=== PATIENT | female | born 1995 | race Caucasian/White ===

== ENCOUNTER 2017-05-10 21:27 | Emergency (ER) | payer BC ==
[~2017-05-10] VITALS: Ht 162.6 cm; Wt 52.8 kg
[2017-05-10 21:33] VITALS: Ht 162.6 cm; Wt 52.8 kg
[2017-05-10] MEDS ORDERED: RANITIDINE HCL 150 MG TAB PO STA (21:39)
[2017-05-10] MEDS ORDERED: DEXAMETHASONE SOD INJ 10 MG/ML VIAL PO ONE (21:45)
[2017-05-10] MEDS ORDERED: EPP3/2 IM (21:57)
[2017-05-10] MEDS ORDERED: PRED50TA PO (21:57)
--- NOTE | 2017-05-10 22:08 | EMERGENCY ROOM VISIT NOTE ---
History First contact with patient: 21:36 Chief Complaint: ALLERGIC REACTION Stated Complaint: HIVES,SWELLING,BRUISING History of Present Illness The patient is a 22 year old female who presents to the Emergency Room with complaints of rash and itching after taking amoxicillin for the past 4 days for sinus infection. Patient states the rash started yesterday. She tried an allergy pill no improvement of symptoms. Patient denies chest pain, throat tightness, facial swelling, abdominal pain, vomiting, diarrhea. No other new foods soaps or detergents. Review of Systems See HPI for pertinent positives & negatives. A total of 10 systems reviewed and were otherwise negative. Past Medical/Surgical History none Social History Smoking Status: Never Smoker Smokeless Tobacco Use: No Drug Use: none Occupation Status: [employer] student Current/Historical Medications Scheduled Epinephrine (Epipen 2-Yovanny), 1 PKT IM DIRECTED Prednisone (Prednisone), 50 MG PO DAILY Physical Exam Vital Signs Date Time Temp Pulse Resp B/P (MAP) Pulse Ox O2 Delivery O2 Flow Rate FiO2 05/10/17 21:33 36.7 85 17 124/82 95 Room Air Physical Exam VITALS: Vitals are noted on the nurse's note and reviewed by myself. Vital signs stable. GENERAL: Pleasant female, in no acute distress, nondiaphoretic, well-developed well-nourished. SKIN: Diffuse erythematous raised blanchable dermatitis most consistent with allergic reaction The rest of the skin was without rashes, erythema, edema, or bruising. There is no tenting of the skin. Capillary reflex less than 2 seconds. HEAD: Normocephalic atraumatic. EARS: External auditory canals clear, tympanic membranes pearly powers without erythema or effusion bilaterally. EYES: Pupils equal round and reactive to light and accommodation. Conjunctivae without injection, sclerae without icterus. Extraocular movements intact. NOSE: Patent, turbinates without inflammation or discharge. No sinus tenderness. MOUTH: Mucous membranes moist. Pharynx without erythema or exudate. Uvula midline. Airway patent. Tongue does not deviate. NECK: Supple without nuchal rigidity. No lymphadenopathy. No thyromegaly. Cervical spine is nontender. No JVD. HEART: Regular rate and rhythm without murmurs gallops or rubs. LUNGS: Clear to auscultation bilaterally without wheezes, rales or rhonchi. No dullness to percussion. No retractions or accessory muscle use. ABDOMEN: Positive bowel sounds x 4. Normal tympanic percussion. Soft, nontender, without masses or organomegaly. Taylor sign negative. No guarding or rebound tenderness. MUSCULOSKELETAL: No muscle atrophy, erythema, or edema noted. NEURO: Patient was alert and oriented to person place and time. Normal sensation to light and sharp touch. No focal neurological deficits. Medical Decision & Procedures Medications Administered Medications (Trade) Dose Ordered Sig/Oriana Route Start Time Stop Time Status Last Admin Dose Admin Dexamethasone Sodium Phosphate (Decadron Inj) 10 mg NOW ONCE PO 05/10/17 21:45 05/10/17 21:46 DC 05/10/17 22:00 10 MG Ranitidine HCl (zANTac TAB) 150 mg ONE STAT PO 05/10/17 21:39 05/10/17 21:41 DC 05/10/17 21:59 150 MG Diphenhydramine HCl (Benadryl Cap) 50 mg NOW ONCE PO 05/10/17 21:45 05/10/17 21:46 DC 05/10/17 22:00 50 MG ED Course Prior records/ancillary studies reviewed. Triage Nursing notes reviewed. Additional history obtained from friend. The patient's history was concerning for possible allergic reaction. Differential diagnosis: Etiologies such as allergic reaction, anaphylaxis, urticaria, Valentino-Catalino syndrome, toxic epidermal necrolysis, erythema multiforme, cellulitis, as well as others were entertained. Physical examination: As above. ER treatment provided: Continuous cardiac monitoring Decadron 10mg po Benadryl 50 mg PO Zantac 150 mg PO On reassessment the patient felt better. Diagnostic interpretation by me: Deferred It appears the patient had an allergic reaction. Patient was advised not to take penicillins in the future until cleared by the repairer kiln car. The above treatment did well to reverse the symptoms. After prolonged monitoring and frequent reassessments the patient did very well and symptoms resolved. The patient was counseled on the spectrum of this disease process and told to avoid potential triggers. I gave my usual and customary discussion regarding this issue. By the evaluation outlined above emergent etiologies such as recurring anaphylaxis, anaphylatic shock, airway compromise, Valentino-Catalino syndrome, toxic epidermal necrolysis, erythema multiforme, infectious etiologies, as well as others were deemed relatively unlikely. The pt informed about the findings as listed above. All questions were answered and pleased with the treatment. Return instructions were outlined and the patient was discharged in stable condition. Outpatient prescription management: EpiPen prednisone Referral: The patient was referred back to primary care physician for follow-up in 2-3 days for a recheck of the current condition. or The patient was referred to Allergy/Immunology for further evaluation. Medical Decision As above Medication Reconcilliation Current Medication List: was personally reviewed by me Blood Pressure Screening Patient's blood pressure: Normal blood pressure Impression Primary Impression: Adverse reaction to drug Departure Information Dispostion Home / Self-Care Condition GOOD Prescriptions Prednisone (Prednisone) 50 Mg Tab 50 MG PO DAILY for 4 Days, #4 TAB Prov: Clarissa Bae .PETE 05/10/17 Epinephrine (EPIPEN 2-YOVANNY) 0.3 Mg Inj 1 PKT IM DIRECTED, #1 PKT Prov: Clarissa Bae .PETE 05/10/17 Referrals No Doctor, Assigned (PCP) Forms HOME CARE DOCUMENTATION FORM, IMPORTANT VISIT INFORMATION Patient Instructions My [facility], ED Drug React Allergic Additional Instructions Do not take penicillins in the future until cleared by the repairer kiln car. Manuel this as an allergy. DO NOT drive, drink alcohol, operate machinery, or perform dangerous activities today. You were given medications in the ER that can affect your ability to safely function or operate a vehicle. Epi-Pen: Use one injection as instructed for severe allergic reactions associated with shortness of breath, difficulty breathing, or throat or tongue swelling. If you use this injection call 911 or proceed immediately to the nearest Emergency Room. Prednisone 50mg: Once daily until the prescription is finished. It is best to take this earlier in the day as some patients note occasional difficulty falling asleep when taken in the late evening. Diphenhydramine(Benadryl) 25mg: use 25 to 50 mg every six hours for swelling, itching, or hives. This medication is sedating and will cause drowsiness. Avoid alcohol, operating machinery or dangerous equipment, working on ladders or roofs, DRIVING, or situations where being under the influence may be dangerous. Zantac 75: Take two pills twice a day along with Benadryl as needed for swelling , itching, or hives. Most people know this for its affect on the stomach, but it also acts similar to, but less potent than Benadryl for allergic reactions. Both the Benadryl and the Zantac are available [id number]. Continue current medications. Return to the emergency department for worsening of your rash, swelling of your face, lips, tongue, or throat, difficulty breathing, vomiting, or as needed. Follow-up with your primary care physician in 2 to 3 days for a recheck of your current condition. Problem Qualifiers Primary Impression: Adverse reaction to drug Encounter type: initial encounter Qualified Codes: T88.7XXA - Unspecified adverse effect of drug or medicament, initial encounter
[2017-05-10 22:11] VITALS: BP 121/78; PULSE 81; TEMP 36.7; O2SAT 95
== END 2017-05-10 22:12 | disposition home or self-care (01) ==
LOC: C.EDB 21:30
DX: T88.7XXA Unspecified adverse effect of drug or medicament, initial encounter (principal); X58.XXXA Exposure to other specified factors, initial encounter; T36.0X5A Adverse effect of penicillins, initial encounter

== ENCOUNTER → 2017-11-28 | Outpatient (CLI) | payer BC ==
[~2017-11-28] MED LIST: EPP3/2 IM
[2017-11-28 16:31] LABS: HEMATOCRIT 40.1 % (37-47); HEMOGLOBIN 13.9 g/dL (12.0-16.0); MEAN CELL VOLUME 85.5 fL (80-100); MEAN CORPUSCULAR HEMOGLOBIN 29.6 pg (25-34); MEAN CORPUSCULAR HGB CONC 34.7 g/dl (32-36); PLATELET COUNT 194 K/uL (130-400); RED CELL DISTRIBUTION WIDTH CV 12.9 % (11.5-14.5); RED CELL DISTRIBUTION WIDTH SD 40.4 fL (36.4-46.3); WHITE BLOOD COUNT 8.79 K/uL (4.8-10.8)
== END | disposition home or self-care (01) ==
LOC: C.LAB1850 15:10
PROVIDERS: ATTEND Physician Assistant
DX: N93.9 Abnormal uterine and vaginal bleeding, unspecified (principal)

== ENCOUNTER → 2017-12-21 | Day surgery (SDC) | payer BC ==
[2017-12-12 08:34] VITALS: Ht 162.6 cm; Wt 54.5 kg
--- NOTE | 2017-12-13 16:41 | HISTORY & PHYSICAL EXAMINATION ---
DATE OF ADMISSION: 12/21/2017 ADMITTING DIAGNOSES: 1. Dysfunctional uterine bleeding. 2. Probable endometrial polyp. ADMISSION HISTORY: The patient is a 22-year-old 0, last menstrual period of 01 December, who is admitted for diagnostic hysteroscopy, D and C, and removal of endometrial polyp. The patient was referred to our office from [facility]. She has been having irregular bleeding. Pelvic ultrasound showed what appeared to be an endometrial polyp. The patient seen in the office and had an office SIS which revealed a probable lower uterine segment endometrial polyp, treatment options were discussed, and the patient has been admitted for the above-listed procedure. PAST MEDICAL HISTORY: OBSTETRICAL: Nulligravida. GYNECOLOGICAL: PCOS. MEDICAL: None. SURGICAL: None. ALLERGIES: TO AMOXICILLIN AND PENICILLIN. SOCIAL HISTORY: No smoking. FAMILY HISTORY: Noncontributory. REVIEW OF SYSTEMS: As per HPI. ADMISSION PHYSICAL EXAMINATION: GENERAL: Shows a pleasant female, in no acute distress. VITAL SIGNS: Blood pressure 100/80, height of 5 feet 3 inches, and weight of 115 pounds. HEENT EXAMINATION: Unremarkable. NECK: Supple. LUNGS: Clear. HEART: With a regular rhythm and rate. ABDOMEN: Soft, nontender. PELVIC EXAMINATION: Shows normal external genitalia. The vaginal vault is pink and rugated. The cervical os is nulliparous and closed. Bimanual examination shows a small anterior uterus. Adnexa show no palpable masses. RECTAL EXAMINATION: Confirmatory. EXTREMITY EXAMINATION: Shows no deep calf tenderness. NEUROLOGICAL EXAMINATION: Grossly intact. IMPRESSION: A 22-year-old 0, probable endometrial polyp, for D and C hysteroscopy. PLAN: The risks, benefits, and alternatives to the surgery have been discussed. While the benefits will be evaluation of the endometrial lining and removal of any abnormal tissue, the risks are bleeding, infection, inadvertent perforation of the uterus, or failure to diagnose and/or treat the problem. The patient understands this, permit has been signed, and she wishes to proceed.
[~2017-12-21] VITALS: Ht 162.6 cm; Wt 54.5 kg
[~2017-12-21] MED LIST changes: +ATROPINE SULFATE 0.1 MG/ML 5ML SYR IV PRN; +CHOL100010 PO; +DEXAMETHASONE SOD INJ 4 MG/ML VIAL ONE; +EpHEDrine SULFATE INJ 50 MG/ML AMP IV PRN; +FENTANYL CITRATE INJ 50 MCG/1 ML 2 ML VIAL IV PRN; +FENTANYL CITRATE INJ 50 MCG/1 ML 2 ML VIAL ONE; +IBUPROFEN 200 MG TAB ONE; +IBUPROFEN 600 MG TAB PO PRN; +KETOROLAC TROMETHAMINE 30 MG/ML VIAL IV. PRN; +KETOROLAC TROMETHAMINE 30 MG/ML VIAL ONE; +LACTATED RINGER'S 1000ML 1,000 ML IV SCH; +LIDOCAINE HCL 2% 2 ML VIAL (20MG/ML) ONE; +MIDAZOLAM HCL 1 MG/ML 2ML VIAL ONE; +ONDANSETRON INJ 2 MG/ML 2 ML VIAL IV PRN; +ONDANSETRON INJ 2 MG/ML 2 ML VIAL ONE; +PROMETHAZINE HCL INJ 6.25 MG in SODIUM CHLORIDE 0.9% 50ML 50 ML IV PRN; +PROPOFOL IV EMULSION 10 MG/ML 20 ML VIAL ONE; +SODIUM CHLORIDE 0.9% 1000ML 1,000 ML IV SCH; +ZINC1TAB PO
--- NOTE | 2017-12-21 13:34 | History & Physical Bridge - SC ---
H&P Re-Evaluation Bridge Note: I have examined the patient, reviewed the History & Physical and in the interval since the performance of the History & Physical I have noted the following changes of clinical significance: No changes noted
--- NOTE | 2017-12-21 14:17 | [facility] Post Operative Brief Note ---
Immediate Operative Summary Operative Date December 21, 2017. Pre-Operative Diagnosis Abnormal Uterine Bleeding, Endometrial Polyp Post-Operative Diagnosis same Procedure(s) Performed Diagnostic Hysteroscopy, Polypectomy, D&C Surgeon Dr. Nicole Calderon Music Store Manager Surgeon(s) 0 Estimated Blood Loss minimal Findings See Below small lower uterine segment polyp excisied, curretage performed Specimens A. Endometrial Curettings Anesthesia Type General Complication(s) none Disposition Accompanied Pt To Recovery: yes Disposition: Recovery Room / PACU
--- NOTE | 2017-12-21 14:22 | Discharge Instructions-SurgCtr ---
Discharge Instructions Date of Service December 21, 2017. Visit Reason for Visit: Abnormal Uterine Bleeding, Endometrial Polyp Discharge Discharge Diagnosis / Problem: same Discharge Goals Goal(s): Therapeutic intervention Activity Recommendations Activity Limitations: as noted below Anesthesia . Post Anesthesia Instructions: If you have had General Anesthesia or IV Sedation: * Do not drive today. * Resume driving when surgeon permits. * Do not make important decisions or sign legal documents today. * Call surgeon for: 1. Temperature elevations greater than 101 degrees F. 2. Uncontrollable pain. 3. Excessive bleeding. 4. Persistent nausea and vomiting. 5. Medication intolerance (nausea, vomiting or rash). * For nausea and vomiting use only clear liquids such as: tea, soda, bouillon until nausea subsides, then gradually increase diet as tolerated. * If you have any concerns or questions, call your surgeon's office. If physician is unavailable and it is an emergency, call 911 or go to the nearest emergency room. . Instructions / Follow-Up Instructions / Follow-Up ACTIVITY RECOMMENDATIONS: * Avoid tampons, douching, hot tubs, pools, and intercourse until bleeding has stopped. * May shower as usual. * No strenuous activity for 24-48 hours. After 24-48 hours, you may do anything you feel like doing (driving and sports are okay). SPECIAL CARE INSTRUCTIONS: Special Diet: * Mild nausea may occur in the immediate post-operative period. * Take clear liquids such as tea, cola or bouillon until all nausea has subsided; you may then resume your normal diet. Special Care: * Light bleeding and vaginal spotting can last from a few days to 3-4 weeks. Call your doctor if bleeding becomes heavier than the heaviest part of your period. * Check your temperature twice a day for one week. If it goes above 100.4 degrees Fahrenheit (38.0 Celsius), notify your doctor. * Call your doctor's office for an appointment for 6 weeks after your surgery. FOLLOW-UP VISIT: Call your doctor's office for an appointment for 6 weeks after your surgery. Diet Recommendations Home Diet: resume previous diet Procedures Procedures Performed: Diagnostic Hysteroscopy, Polypectomy, D&C Pending Studies Studies pending at discharge: yes List of pending studies: Pathology Medical Emergencies . Who to Call and When: Medical Emergencies: If at any time you feel your situation is an emergency, please call 911 immediately. . Non-Emergent Contact Non-Emergency issues call your: Components Engineer Call Non-Emergent contact if: you have a fever, temperature is above 100.5 . . "Provider Documentation" section prepared by Robert Calderon. .
[2017-12-21 15:04] VITALS: TEMP 36.3
--- NOTE | 2017-12-21 15:14 | OPERATIVE REPORT ---
DATE OF OPERATION: 12/21/2017 PREOPERATIVE DIAGNOSES: 1. Dysfunctional uterine bleeding. 2. Endometrial polyp. POSTOPERATIVE DIAGNOSES: Same. PROCEDURE PERFORMED: 1. Diagnostic hysteroscopy. 2. Endometrial polypectomy. 3. D and C. SURGEON: Robert Calderon MD ANESTHESIA: General. FINDINGS: Hysteroscopic examination of the endometrium showed a thickened endometrial lining with a probable polyp in the anterior lower uterine segment. Polypectomy and curettage performed using the MyoSure resection instrument. Fluid deficit for the procedure 550 mL. PROCEDURE NOTE: The patient was taken to the operating room and after general anesthesia, was placed in dorsal lithotomy position and draped and prepped in usual fashion. Bladder was drained of any residual urine. Single tooth tenaculum was used to grasp the anterior lip of the cervix. Cervical os was dilated with Marc dilators to a Marc #25. The MyoSure instrument was inserted into the uterine cavity with the description as above. The resection piece was inserted through the MyoSure scope and the polyp in the endometrial lining was curettaged and removed. Post-procedure showed a denuded endometrium. Fluid deficit for the procedure was 550 mL. Tenaculum removed. The patient was taken out of dorsal lithotomy to recovery room in satisfactory condition. I attest to the content of the Intraoperative Record and any orders documented therein. Any exception s are noted below.
[2017-12-21 15:29] VITALS: BP 103/67; PULSE 70; O2SAT 100
--- NOTE | 2017-12-21 15:30 | Anesthesiology Progress Note ---
Anesthesia Post Op Note Date & Time December 21, 2017 at 15:30 Vital Signs Pain Intensity: 7.0 Vital Signs Past 12 Hours Date Time Temp Pulse Resp B/P (MAP) Pulse Ox O2 Delivery O2 Flow Rate FiO2 12/21/17 15:04 36.3 60 16 105/73 (84) 100 Room Air 12/21/17 14:52 73 9 100 12/21/17 14:52 71 9 12/21/17 14:52 73 9 100 12/21/17 14:52 71 9 12/21/17 14:51 103/81 12/21/17 14:51 103/81 12/21/17 14:51 36.3 64 20 103/81 100 Room Air 12/21/17 14:47 69 15 12/21/17 14:47 72 15 100 12/21/17 14:47 69 15 12/21/17 14:47 72 15 100 12/21/17 14:46 107/72 12/21/17 14:46 107/72 12/21/17 14:42 68 12 100 12/21/17 14:42 68 12 12/21/17 14:42 68 12 100 12/21/17 14:42 68 12 12/21/17 14:41 116/56 12/21/17 14:41 116/56 12/21/17 14:37 72 13 100 12/21/17 14:37 73 13 12/21/17 14:37 72 13 100 12/21/17 14:37 73 13 12/21/17 14:36 98/60 12/21/17 14:36 98/60 12/21/17 14:32 62 19 12/21/17 14:32 62 19 100 12/21/17 14:32 62 19 100 12/21/17 14:32 62 19 12/21/17 14:31 106/66 12/21/17 14:31 106/66 12/21/17 14:28 114/64 12/21/17 14:28 114/64 12/21/17 14:27 37.2 59 16 114/64 100 Mask 6 12/21/17 12:34 36.7 76 22 104/69 (81) 97 Room Air Notes Mental Status: alert / awake / arousable, participated in evaluation Pt Amnestic to Procedure: Yes Nausea / Vomiting: adequately controlled Pain: adequately controlled Airway Patency, RR, SpO2: stable & adequate BP & HR: stable & adequate Hydration State: stable & adequate Anesthetic Complications: no major complications apparent
== END | disposition home or self-care (01) ==
LOC: X.SURG 12:22
PROVIDERS: ATTEND Obstetrics & Gynecology
DX: N93.8 Other specified abnormal uterine and vaginal bleeding (principal); E28.2 Polycystic ovarian syndrome; N84.0 Polyp of corpus uteri; Z88.0 Allergy status to penicillin; Z88.1 Allergy status to other antibiotic agents